=== PATIENT | female | born 1990 | race African-American/Black ===

== ENCOUNTER 2018-03-30 12:39 | Emergency (ER) | payer MEDICAID ==
[~2018-03-30] VITALS: Ht 167.6 cm; Wt 53.5 kg
[2018-03-30 12:45] VITALS: BP_SYST 113
[2018-03-30 13:20] LABS: EOSINOPHILS # (AUTO) 0.1 K/uL (0.0-0.4); EOSINOPHILS % (AUTO) 1.2 % (0.0-4.0); MONOCYTES # (AUTO) 0.5 K/uL (0.0-1.0)
[2018-03-30 13:28] LABS: HEMATOCRIT 40.4 % (36-48); HEMOGLOBIN 13.3 g/dL (12.0-16.0); MEAN CORPUSCULAR HEMOGLOBIN 30 pg (27-31); MEAN CORPUSCULAR HGB CONC 33 % (32-36); MEAN CORPUSCULAR VOLUME 90 fL (79.0-98.0); PLATELET COUNT (AUTO) 270 K/uL (130-430); RED BLOOD CELL COUNT(AUTO) 4.47 MIL/uL (4.2-6.2); RED CELL DISTRIBUTION WIDTH 12.2 % (9.0-15.0); WHITE BLOOD COUNT (AUTO) 4.6 K/uL (4.8-10.8)
[2018-03-30 13:29] LABS: BASOPHILS % (AUTO) 0.5 % (0.0-2.0); LYMPHOCYTES # (AUTO) 2.1 K/uL (1.0-5.5); LYMPHOCYTES % (AUTO) 45.7 % (20.5-51.5); MONOCYTES % (AUTO) 11.7 % (1.7-9.3); NEUTROPHILS # (AUTO) 1.9 K/uL (1.8-7.7); NEUTROPHILS % (AUTO) 40.9 % (40.0-70.0)
[2018-03-30 13:32] LABS: ANION GAP 9 (5-15); CALCIUM 9.1 mg/dL (8.4-11.0); CHLORIDE 102 mmol/L (98-107); CREATININE 0.77 mg/dL (0.55-1.30); GLUCOSE 86 mg/dL (70-99); POTASSIUM 3.7 mmol/L (3.5-5.1); SODIUM SERUM 137 mmol/L (136-145); UREA NITROGEN, BLOOD 9 mg/dL (8-21)
[2018-03-30 13:36] LABS: BILIRUBIN,URINE NEGATIVE (NEGATIVE); BLOOD, URINE 3+ (NEGATIVE); CLARITY/URINE SL HAZY (CLEAR); COLOR,URINE YELLOW (YELLOW); GLUCOSE,URINE NEGATIVE (NEGATIVE); KETONES,URINE NEGATIVE (NEGATIVE); LEUKOCYTE ESTERASE ,URINE TRACE (NEGATIVE); NITRITE, URINE NEGATIVE (NEGATIVE); PROTEIN URINE NEGATIVE (NEGATIVE); UROBILINOGEN,URINE 0.2 (0.2-1.0)
[2018-03-30 13:38] LABS: ALANINE AMINOTRANSFERASE 19 U/L (12-78); ALBUMIN 3.4 g/dL (3.4-4.8); ASPARTATE AMINOTRANSFERASE 16 U/L (10-37); TOTAL BILIRUBIN 0.3 mg/dL (0.0-1.0)
[2018-03-30 13:39] LABS: ALCOHOL, BLOOD < 3 mg/dL (<10); GFR AFRICAN AMERICAN 117 mL/min (>90)
[2018-03-30 13:40] LABS: ACETAMINOPHEN < 1 ug/mL (1-30); VALPROIC ACID < 3 ug/mL (50-100)
[2018-03-30 13:49] LABS: BACTERIA,URINE FEW /HPF (None Seen)
[2018-03-30 13:54] LABS: BARBITURATE, URINE NEGATIVE (NEG <=200); BENZODIAZEPINE, URINE NEGATIVE (NEG <=150); CANNABINOID, URINE NEGATIVE (NEG <=50); COCAINE, URINE NEGATIVE (NEG <=150); METHAMPHETAMINES SCREEN,URINE NEGATIVE (NEG <=500); OPIATE, URINE NEGATIVE (NEG <=100); PHENCYCLIDINE SCREEN,URINE NEGATIVE (NEG <=25); UR TRICYCLIC ANTIDEPRESSANTS NEGATIVE (NEG <=300); URINE AMPHETAMINE NEGATIVE (NEG <=500); URINE METHADONE NEGATIVE (NEG <=200); URINE OXYCODONE SCREEN NEGATIVE (NEG <=100); URINE PROPOXYPHENE SCREEN NEGATIVE (NEG <=300)
[2018-03-30] MEDS ORDERED: BENZ1TAB7 PO (15:21)
[2018-03-30] MEDS ORDERED: MULT-1089 PO (15:21)
[2018-03-30] MEDS ORDERED: PROP10TA10 PO (15:21)
[2018-03-30] MEDS ORDERED: TRAZ-123 PO (15:21)
[2018-03-30 19:55] VITALS: BP_SYST 118
== END 2018-03-30 19:55 ==
LOC: SED 12:39
DX: F23 Brief psychotic disorder (principal); R03.0 Elevated blood-pressure reading, without diagnosis of hypertension; Z88.8 Allergy status to other drugs, medicaments and biological substances; Z79.899 Other long term (current) drug therapy
CPT/HCPCS: 36415; 80053; 80164; 80307; 81000; 81025; 85025; 87086; 93005; 99285; G0480; G0481; G0482

== ENCOUNTER 2022-02-02 08:36 | Emergency (ER) | payer MEDICAID ==
[~2022-02-02] VITALS: Ht 165.1 cm; Wt 47.6 kg
[~2022-02-02 08:36] MED LIST: BENZ1TAB76 PO; MULT-1089 PO; PROP10TA10 PO; TRAZ-250 PO
--- NOTE | 2022-02-02 08:46 | NUR ---
RECEIVED PT FROM GATO HORTON. PT WAS BIB CONSERVATOR WHO STATES PT HAS BEEN AGRESSIVE TOWARDS HER AND HER PROPERTY. THE CONSERVATOR IS SEEKING TO HAVE THE PT COMMITTED TO [facility] WHERE THE PT HAS BEEN A PT IN THE PAST. THE CONSERVATOR STATES THE PT HAS BIPOLAR DISORDER AND PARANOID SCHIZOPHRENIA. PT IS CALM AT THIS TIME. AAOX4. RESP E/U. ON R/A. DENIES N/V/D/C. SKIN INTACT, WARM, NO EDEMA. PT DENIES PAIN.
[2022-02-02 08:47] VITALS: BP_SYST 124
--- NOTE | 2022-02-02 08:55 | NUR ---
DR. CASTRO AT BEDSIDE TO ASSESS PT.
[2022-02-02 09:18] LABS: BASOPHILS % (AUTO) 0.3 % (0.0-2.0); EOSINOPHILS % (AUTO) 0.7 % (0.0-4.0); HEMATOCRIT 37.2 % (36-48); HEMOGLOBIN 12.2 g/dL (12.0-16.0); LYMPHOCYTES # (AUTO) 0.9 K/uL (1.0-5.5); LYMPHOCYTES % (AUTO) 24.2 % (20.5-51.5); MEAN CORPUSCULAR HEMOGLOBIN 29 pg (27-31); MEAN CORPUSCULAR HGB CONC 33 % (32-36); MEAN CORPUSCULAR VOLUME 89 fL (79.0-98.0); MONOCYTES # (AUTO) 0.4 K/uL (0.0-1.0); MONOCYTES % (AUTO) 11.5 % (1.7-9.3); NEUTROPHILS # (AUTO) 2.4 K/uL (1.8-7.7); NEUTROPHILS % (AUTO) 63.3 % (40.0-70.0); PLATELET COUNT (AUTO) 160 K/uL (130-430); RED BLOOD CELL COUNT(AUTO) 4.16 MIL/uL (4.2-6.2); RED CELL DISTRIBUTION WIDTH 15.5 % (9.0-15.0); WHITE BLOOD COUNT (AUTO) 3.8 K/uL (4.8-10.8)
--- NOTE | 2022-02-02 09:30 | NUR ---
LABS OBTAINED, COVID SWAB OBTAINED.
[2022-02-02 09:34] LABS: ANION GAP 5 (5-15); CALCIUM 8.7 mg/dL (8.4-11.0); CHLORIDE 104 mmol/L (98-107); CREATININE 0.88 mg/dL (0.55-1.30); GLUCOSE 80 mg/dL (70-99); POTASSIUM 4.4 mmol/L (3.5-5.1); UREA NITROGEN, BLOOD 11 mg/dL (8-21)
[2022-02-02 09:45] LABS: GFR AFRICAN AMERICAN 98 mL/min (>90)
[2022-02-02 09:47] LABS: ALANINE AMINOTRANSFERASE 6 U/L (12-78); ASPARTATE AMINOTRANSFERASE 12 U/L (10-37); TOTAL BILIRUBIN 0.3 mg/dL (0.0-1.0)
[2022-02-02 09:54] LABS: ALCOHOL, BLOOD < 3 mg/dL (<10)
--- NOTE | 2022-02-02 10:10 | NUR ---
Patient given written and verbal discharge instructions and verbalizes understanding. ER MD discussed with patient the results and treatment provided. Patient in stable condition. ID arm band removed. Patient educated on pain management and to follow up with PMD. Pain Scale . Opportunity for questions provided and answered. Medication side effect fact sheet provided. CONSERVATOR GIVEN CONTACT INFO FOR MICHELE SALINAS.
[2022-02-02 10:20] VITALS: BP_SYST 123
== END 2022-02-02 10:10 | disposition home or self-care (01) ==
LOC: SED 08:36
DX: F20.9 Schizophrenia, unspecified (principal); R45.1 Restlessness and agitation; Z79.899 Other long term (current) drug therapy; Z20.822 Contact with and (suspected) exposure to COVID-19
CPT/HCPCS: 99283; 87426; 80053; 85025; 36415; G0482